=== PATIENT | female | born 1985 | race Caucasian/White ===

== ENCOUNTER 2018-03-11 11:39 | Emergency (ER) | payer MEDICAID, SELFPAY ==
[2018-03-11 11:39] VITALS: BP 122/82; PULSE 109; RESP 18; TEMP 36.6; O2SAT 100; BMI 25.4
[2018-03-11 12:48] LABS: Bacteria 0 SEEN /hpf (None Seen); Mucous, Urine 0 SEEN /hpf (<or=2+); Red Blood Cells-Urine 0 SEEN /hpf (0-5)
[2018-03-11 12:51] LABS: Color, Urine Yellow (Yellow); Glucose, Dipstick Normal (Normal); Ketone-Dipstick Negative (Negative); Leukocyte Esterase-Dipstick 500 /ul (Negative); Nitrite-Dipstick Negative (Negative); Occult Blood-Urine 25 /ul (Negative); Protein-Dipstick Negative (Negative); Specific Gravity, Urine 1.015 (1.002-1.030); Urine Bilirubin Dipstick Negative (Negative); Urine Clarity Clear (Clear); Urine Urobilinogen Normal (Normal)
[2018-03-11 12:56] LABS: Squamous Epithelial Cells - UA 0-5 SEEN /hpf (5-10); White Blood Cells 5-10 SEEN /hpf (0-5)
--- NOTE | 2018-03-11 13:40 | ED.VISSUMM ---
- ER Visit Summary Date of Service: 03/11/18 Chief Complaint: Dysuria History of Present Illness: The patient is a 32 F who reported developing itching to her labia a week ago. She has had urinary frequency and dysuria since that time. She has not noted any discharge. She reports some mild low back pain and states that her temperature was 102 a couple days ago. Patient has had prior hysterectomy. Physical Examination: Vital signs are unremarkable. Patient's lying in bed no acute distress. Heart is regular rate and rhythm. Lung sounds are clear. Abdomen is soft with very mild suprapubic tenderness. There is no CVA tenderness. Test Results: Bladder scan was performed and revealed only 100 cc of urine. Urinalysis does show 500 leukocyte esterase with 10 white cells. They do not see bacteria. Emergency Department Course and Treatment: Patient certainly has signs and symptoms consistent with cystitis. I did do an external genital exam and there are no lesions, erythema, or significant edema. She will be treated with a 3 day course of Cipro and urine will be sent for culture. She is also given Pyridium. Treatment Plan: [] Disposition: Discharge Impression: Cystitis This note was generated with [employer] dictation software. It may contain incorrect words, spelling, and punctuation that were not noted in review of the chart prior to signing ED Disposition - Plan for ED Patient: Disposition: Home or Assisted Living Chief Complaint: Complaint Instructions: ED UTI Cystitis Female Prescriptions: Phenazopyridine HCl [Pyridium] 200 mg PO BID PRN PRN #10 tablet PRN Reason: Pain Ciprofloxacin [Cipro] 500 mg PO BID #6 tablet Referrals: Alessia David MD [Primary Care Provider] - 1 Week
[2018-03-11] MEDS: Ciprofloxacin 250 MG Tablet 500 MG PO (14:10)
[2018-03-11] MEDS: Phenazopyridine 95 MG Tablet 190 MG PO (14:11)
[2018-03-11 14:13] VITALS: BP 135/90; PULSE 83; RESP 16; O2SAT 100
== END 2018-03-11 14:14 | disposition home or self-care (01) ==
PROVIDERS: Emergency Provider Emergency Medicine; Family Provider Student in an Organized Health Care Education/Training Program; PCP Internal Medicine
DX: N30.90 Cystitis, unspecified without hematuria (principal); Z87.891 Personal history of nicotine dependence
CPT/HCPCS: 81001; 87086; 87088; 99282

== ENCOUNTER 2018-06-30 11:25 | Emergency (ER) | payer MEDICAID, SELFPAY ==
[2018-06-30 11:26] VITALS: BP 157/102; PULSE 127; RESP 18; TEMP 36.9; O2SAT 100; BMI 25.9
--- NOTE | 2018-06-30 11:52 | ED.DCSUM_ITS ---
- ER Visit Summary Date of Service: 06/30/18 Chief Complaint: Abscess History of Present Illness: The patient is a 32 F presents to the emergency department abscess. Patient has had history of the same. She states over the past 3 days, she has had 2 abscess. One is in her right axilla and the other is on her right buttock. States 1 of the right buttock has increased in size and tenderness. She denies any fevers or chills. Patient has had MRSA in the past. She has no history of immunosuppression. She takes no daily medications. Physical Examination: Vital signs reviewed General: Well-nourished, well-developed Head: Normocephalic, atraumatic Eyes: Pupils equal and reactive, extraocular muscles intact Neck, supple, no lymphadenopathy Heart: Regular rate and rhythm Respiratory: No distress, clear bilaterally Abdomen: Soft, nontender, nondistended, no peritoneal signs Back: Nontender Extremities: Nontender, no edema, no cords Skin: Normal color, patient does have a 1 cm ovoid abscess within the right axilla without any surrounding cellulitis, she also has a 3 cm ovoid abscess on the right buttock with some surrounding cellulitis. There is no motion towards the anal canal. There is no streaking. Neuro: Alert and oriented, no focal or lateralizing deficits Test Results: [] Emergency Department Course and Treatment: The patient does have 2 abscess. Both were prepped in a sterile fashion. The gluteal abscess was injected with approximately 6 cc of lidocaine with epinephrine and bupivacaine mix. It was incised with a cruciate incision. Purulence was able to be expressed. I did obtain a culture. Packing was placed. Loculations were broken up. The area in her right axilla was also anesthetized and opened. It was very superficial. There was no deep pockets. I do not feel the packing is necessary. With the patient's history of MRSA and allergy to Bactrim, she will be started on doxycycline and Keflex. She is also given a short course of analgesics. She was counseled on concerning symptoms and reasons to return. She will be given outpatient follow-up with surgery for reevaluation. Patient is discharged home. Treatment Plan: [] Disposition: Discharge Impression: 1. Right axillary abscess with I&D 2. Right gluteal abscess with I &D This note was generated with [employer] software. It may contain incorrect words, spelling, and punctuation that were not noted in review of the chart prior to signing ED Disposition - Plan for ED Patient: Disposition: Home or Assisted Living Chief Complaint: Abscess Instructions: ED Abscess IandD Prescriptions: Hydrocodone Bitart/Apap 5-325 [[place] 5MG-325MG] 1 tab PO Q6H PRN PRN 3 Days #10 tab PRN Reason: Pain Cephalexin [Keflex] 500 mg PO Q6 #40 cap Doxycycline Monohydrate 100 mg PO BID #20 cap Referrals: Alessia David MD [Primary Care Provider] - Kylah Akins MD [STAFF PHYSICIAN] - 2 Days for wound check
[2018-06-30] MEDS: HYDROmorphone 1 MG/ML Syringe IM (12:03)
[2018-06-30] MEDS: Ondansetron ODT 4 MG Tablet PO (12:08)
[2018-06-30 12:58] VITALS: BP 120/74; PULSE 87; RESP 16; O2SAT 100
[2018-06-30] MEDS: Cephalexin 250 MG Capsule 500 MG PO (13:06)
[2018-06-30] MEDS: Doxycycline 100 MG CAPSULE PO (13:06)
[2018-06-30 14:49] LABS: M R Staph aureus DNA By PCR POSITIVE (Negative); Probe Check PASS; Staph aureus DNA By PCR POSITIVE (Negative)
--- NOTE | 2018-07-02 14:31 | ED.RN ---
Micro report given to Dr Henderson to verify. Doxycycline and keflex were set as rx fopr home. No changes were necessary.
== END 2018-06-30 13:13 | disposition home or self-care (01) ==
LOC: ED 12:14
PROVIDERS: Emergency Provider Emergency Medicine; Family Provider Internal Medicine; PCP Internal Medicine
DX: L02.411 Cutaneous abscess of right axilla (principal); L02.31 Cutaneous abscess of buttock; Z86.14 Personal history of Methicillin resistant Staphylococcus aureus infection
CPT/HCPCS: 10061; 87070; 87077; 87186; 87205; 87640; 96372; 99284

== ENCOUNTER 2018-09-21 21:20 | Emergency (ER) | payer MEDICAID, SELFPAY ==
[2018-09-21 21:21] VITALS: BP 166/98; PULSE 108; RESP 16; TEMP 36.9; O2SAT 100; BMI 25.7
--- NOTE | 2018-09-21 21:33 | CT_ITS ---
STUDY: CT BRAIN WITHOUT CONTRAST REASON FOR EXAM: Female, 33 years old. Headache times several days RADIATION DOSAGE (If Supplied By Facility): CTDIvol = ( 44.99 ) mGy, DLP = ( 745.49 ) mGycm TECHNIQUE: Transaxial CT imaging of the brain was performed without administration of intravenous contrast material. Individualized dose optimization techniques were used for this CT. COMPARISON: None. FINDINGS: Normal soft tissue structures. Normal calvarium. Normal size ventricles and extra-axial spaces for the patient's age. Normal white matter tracts of the cerebral hemispheres. Normal basal ganglia and thalami. Normal brainstem. Normal cerebellum. There is no intracranial hemorrhage. There are no findings of an acute ischemic infarction. There is a partially visualized polypoid defect of the medial right maxillary sinus. CT/Brain/Head without Contrast IMPRESSION: Partially visualized polypoid defect of the medial right maxillary sinus consistent with a mucoid retention cyst. The study is otherwise unremarkable. Electronically Signed: Riaz Wahl MD at 22:27 EST , Service support ,
--- NOTE | 2018-09-21 21:33 | ED.VISSUMM ---
- ER Visit Summary Date of Service: 09/21/18 Chief Complaint: Headache History of Present Illness: The patient is a 33 F who presents with headache that has been getting worse over the past 2 days. Patient states the pain is gradually gotten worse. She describes the pain as sharp, throbbing, and tightness. Patient states the pain is generalized around her head and radiates into her neck. Patient admits to some nausea but denies any vomiting. Patient admits to some photophobia. Patient denies any prior history of headaches. Patient denies any trauma or injury. Patient states the pain is worse with light. Patient states nothing has helped with the pain. Physical Examination: Vital signs are stable except for mildly elevated blood pressure 166/98 and a mild tachycardia of 108. Patient is awake and alert. Patient is in no acute distress. Patient is afebrile. Cranial nerves II through XII are intact. Strength is 5/5 bilaterally upper and lower extremities. There are no sensory deficits noted. Oral mucosa is pink and moist. Patient is able to move her neck but states there is some pain with movement of her neck. Heart was regular rate and rhythm. Lungs are clear and equal bilaterally. Abdomen is soft. Bowel sounds are normal. There are is no tenderness. There is no guarding noted. The remaining physical exam is within normal limits. Test Results: CT scan of the brain was obtained. There is no acute intracranial hemorrhage noted. Emergency Department Course and Treatment: Patient was given IV fluids, Reglan, Benadryl, and morphine. Patient had mild improvement of her symptoms. Patient still complains of a headache but is improved. Patient was advised of her CT results. Given that her duration of symptoms is 2 days, her likelihood of having a subarachnoid hemorrhage despite a normal head CT was explained. Patient does not want a lumbar puncture at this time. A CTA of the head and neck was obtained. After the patient returned from CTA, she stated her headache has returned full force and requested more medications. Patient was given an injection of Norflex and morphine. Patient was able to ambulate to the bathroom and back to her room without difficulty. Patient did not appear to be in any acute distress while she was walking to the bathroom and back. CT of the brain does not show any acute intracranial abnormality. CTA of the neck also is within normal limits. Patient was instructed to rest in a dark quiet room. Patient was instructed to follow-up with her primary care physician in 3-5 days. Patient understood and was agreeable with the plan. All questions were answered. Disposition: Discharge home Impression: Cephalgia This note was generated with [employer] dictation software. It may contain incorrect words, spelling, and punctuation that were not noted in review of the chart prior to signing ED Disposition - Plan for ED Patient: Disposition: Home or Assisted Living Chief Complaint: Headache Diagnosis: Cephalgia Instructions: ED Cephalgia Unspecified Referrals: Alessia David MD [Primary Care Provider] -
[2018-09-21 21:34] VITALS: RESP 18
[2018-09-21] MEDS: DiphenhydrAMINE 50 MG/ML Syringe 25 MG IV (21:50)
[2018-09-21] MEDS: 0.9% Normal Saline 1,000 ML 1000 ML IV (21:50)
[2018-09-21] MEDS: Metoclopramide 10 MG/2 ML Vial IV (21:52)
[2018-09-21] MEDS: Morphine 4 MG/ML Syringe IV (21:54)
[2018-09-21 22:05] LABS: Absolute Neutrophil Count 4.3 X10^3/uL (2.0-7.7); Basophil# 0.03 X10^3/uL; Basophil% 0.3 % (0-1); Eosinophil# 0.27 X10^3/uL; Hematocrit 40.4 % (37-47); Hemoglobin 13.4 g/dl (12.0-15.0); Lymphocyte % 41.8 % (19-41); Mean Corp Hgb Conc 33.2 g/gl (32-36); Mean Corpuscular Volume 87.4 fL (81-99); Mean Platelet Vol. 10.5 fl (6.2-12.0); Monocyte# 0.64 X10^3/uL; Neutrophil # 4.34 X10^3/uL (2.7-7.7); Neutrophil % 47.8 % (47-70); Platelet Count 201 K/mm3 (150-450); RBC Distribution Width SD 41.8 fl (35.1-43.9); Red Blood Count 4.62 M/mm3 (4.2-5.4); White Blood Count 9.1 K/mm3 (4.4-11.0)
[2018-09-21 22:06] LABS: POSITIVE COUNT NO; POSITIVE DIFFERENTIAL NO; POSITIVE MORPHOLOGY NO
[2018-09-21 22:17] LABS: Anion Gap 8 (5-15); BUN 10 mg/dL (7-18); BUN/Creat Ratio 13.1 RATIO (10-20); Calcium,Total 8.5 mg/dL (8.5-10.1); Chloride 102 mmol/L (98-107); Creatinine, Serum 0.76 mg/dL (0.55-1.02); EST Glomerular Filtration Rate 93 mL/min (>60); Est Glom Filt Rate - Afr Amer 112 mL/min (>60); Estimated Creatinine Clearance 79.45 ml/min; Glucose 96 mg/dL (74-106); Potassium 3.3 mmol/L (3.5-5.1); Sodium Level 142 mmol/L (136-145)
--- NOTE | 2018-09-21 22:48 | CT_ITS ---
HISTORY: HEADACHE TECHNIQUE: Routine [place] of [place]/brain CT angiogram protocol was performed following IV contrast. 3D reconstructions were reviewed. A radiation dose optimization technique was used for this scan. IV Contrast dosage and agent: 100 cc Isovue 370 contrast COMPARISON: None FINDINGS: Normal patency of the carotid and vertebrobasilar systems. Vertebral arteries are codominant. Normal filling of the anterior, middle, and posterior cerebral arteries. No vascular malformation, aneurysm, or vessel occlusion. Mucosal thickening of the maxillary sinuses bilaterally and partial opacification of the anterior ethmoid air cells on the left CT/CTA Head W/WO Contrast IMPRESSION: 1. No arterial occlusion, aneurysm or vascular malformation. 2. Bilateral maxillary and left ethmoid sinusitis. Individualized dose optimization techniques were used for this CT. at 0037 Reported and signed by: Uriel Gant MD Electronically Signed: Uriel Gant, at 0:35 EST Tel , Service support ,
--- NOTE | 2018-09-21 22:48 | CT_ITS ---
HISTORY: HEADACHE TECHNIQUE: Routine carotid CT angiogram protocol was performed without and with IV contrast. Nascet criteria using the distal ICAs for comparison were used for evaluation of stenoses. 3D reconstructions were reviewed. A radiation dose optimization technique was used for this scan. IV Contrast dosage and agent: 100 cc Isovue 370 contrast COMPARISON: None FINDINGS: AORTIC ARCH AND BRANCHES: Normal anatomy, patent. RIGHT CCA: No occlusion, significant stenosis or dissection. RIGHT ICA: No occlusion, significant stenosis or dissection. LEFT CCA: No occlusion, significant stenosis or dissection. LEFT ICA: No occlusion, significant stenosis or dissection. RIGHT VERTEBRAL ARTERY: No occlusion, significant stenosis or dissection. LEFT VERTEBRAL ARTERY: No occlusion, significant stenosis or dissection. NECK SOFT TISSUES: Unremarkable. BONES: Mucosal thickening of the maxillary sinuses bilaterally and partial opacification of the anterior ethmoid air cells and left CT/CTA Neck W/WO Contrast IMPRESSION: 1. Normal bilateral CTA carotids. No arterial dissection or luminal narrowing. 2. Bilateral maxillary and left ethmoid sinusitis. Individualized dose optimization techniques were used for this CT. at 0042 Reported and signed by: Uriel Gant MD Electronically Signed: Uriel Gant, at 0:40 EST Tel , Service support ,
[2018-09-22] MEDS: Morphine 2 MG/ML Syringe IV (00:34)
[2018-09-22 00:35] VITALS: BP 135/99; PULSE 78; RESP 16; O2SAT 100
[2018-09-22] MEDS: Orphenadrine 60 MG/2 ML Ampul IM (00:37)
[2018-09-22 01:00] VITALS: BP 128/95; PULSE 92; RESP 15; O2SAT 99
== END 2018-09-22 01:02 | disposition home or self-care (01) ==
PROVIDERS: Emergency Provider Emergency Medicine; Family Provider Internal Medicine; PCP Internal Medicine
DX: R51 Headache (principal); Z72.0 Tobacco use
CPT/HCPCS: 70450; 70496; 70498; 80048; 85025; 96361; 96372; 96374; 96375; 96376; 99283; J7030; Q9967; A4216